=== PATIENT | male | born 1950 | race African-American/Black ===

== ENCOUNTER 2024-06-21 14:35 | Emergency (ER) | payer MEDICARE, OTHER ==
[~2024-06-21] VITALS: Ht 180.3 cm; Wt 100.0 kg
[2024-06-21 14:39] VITALS: BP 161/84; PULSE 74; RESP 18; TEMP 98.3; O2SAT 100
[2024-06-21] MEDS ORDERED: LOSA-381 PO (14:41)
== END 2024-06-21 18:29 | disposition left against medical advice (07) ==
LOC: EMS 14:35
DX: M79.605 Pain in left leg (principal); Z53.21 Procedure and treatment not carried out due to patient leaving prior to being seen by health care provider